=== PATIENT | female | born 1960 | race Caucasian/White ===

== ENCOUNTER → 2019-06-19 | Outpatient (CLI) | payer OTHER | LOC: M.WC 08:00 | DX: L59.8 Other specified disorders of the skin and subcutaneous tissue related to radiation (principal); C44.320 Squamous cell carcinoma of skin of unspecified parts of face; R13.12 Dysphagia, oropharyngeal phase; E03.9 Hypothyroidism, unspecified; I10 Essential (primary) hypertension; J44.9 Chronic obstructive pulmonary disease, unspecified; K11.7 Disturbances of salivary secretion; F41.9 Anxiety disorder, unspecified; F32.9 Major depressive disorder, single episode, unspecified; Z87.891 Personal history of nicotine dependence; Y84.2 Radiological procedure and radiotherapy as the cause of abnormal reaction of the patient, or of later complication, without mention of misadventure at the time of the procedure ==

== ENCOUNTER → 2019-10-30 | Outpatient (CLI) | payer OTHER | LOC: M.WC 01:08 | PROVIDERS: ATTEND Family Medicine | DX: L59.8 Other specified disorders of the skin and subcutaneous tissue related to radiation (principal); C44.320 Squamous cell carcinoma of skin of unspecified parts of face; R13.12 Dysphagia, oropharyngeal phase; K11.7 Disturbances of salivary secretion; E03.9 Hypothyroidism, unspecified; I10 Essential (primary) hypertension; F41.9 Anxiety disorder, unspecified; F32.9 Major depressive disorder, single episode, unspecified; Z87.891 Personal history of nicotine dependence; Y84.2 Radiological procedure and radiotherapy as the cause of abnormal reaction of the patient, or of later complication, without mention of misadventure at the time of the procedure ==

== ENCOUNTER → 2019-11-05 | Outpatient (CLI) | payer OTHER | LOC: M.WC 05:01 | PROVIDERS: ATTEND Family Medicine | DX: L59.8 Other specified disorders of the skin and subcutaneous tissue related to radiation (principal); C44.320 Squamous cell carcinoma of skin of unspecified parts of face; R13.12 Dysphagia, oropharyngeal phase; E03.9 Hypothyroidism, unspecified; I10 Essential (primary) hypertension; J44.9 Chronic obstructive pulmonary disease, unspecified; K11.7 Disturbances of salivary secretion; F41.9 Anxiety disorder, unspecified; F32.9 Major depressive disorder, single episode, unspecified; Z85.810 Personal history of malignant neoplasm of tongue; Y84.2 Radiological procedure and radiotherapy as the cause of abnormal reaction of the patient, or of later complication, without mention of misadventure at the time of the procedure ==

== ENCOUNTER → 2019-11-16 | Outpatient (CLI) | payer OTHER | LOC: M.WC 04:23 | PROVIDERS: ATTEND Surgery | DX: L59.8 Other specified disorders of the skin and subcutaneous tissue related to radiation (principal); C44.320 Squamous cell carcinoma of skin of unspecified parts of face; E03.9 Hypothyroidism, unspecified; I10 Essential (primary) hypertension; R13.12 Dysphagia, oropharyngeal phase; K11.7 Disturbances of salivary secretion; M87.88 Other osteonecrosis, other site; Z87.891 Personal history of nicotine dependence; Z85.810 Personal history of malignant neoplasm of tongue; Y84.2 Radiological procedure and radiotherapy as the cause of abnormal reaction of the patient, or of later complication, without mention of misadventure at the time of the procedure ==

== ENCOUNTER → 2019-11-17 | Outpatient (CLI) | payer OTHER | LOC: M.WC 04:07 | PROVIDERS: ATTEND Emergency Medicine Undersea and Hyperbaric Medicine | DX: L59.8 Other specified disorders of the skin and subcutaneous tissue related to radiation (principal); C44.320 Squamous cell carcinoma of skin of unspecified parts of face; E03.9 Hypothyroidism, unspecified; I10 Essential (primary) hypertension; R13.12 Dysphagia, oropharyngeal phase; K11.7 Disturbances of salivary secretion; M87.88 Other osteonecrosis, other site; Z87.891 Personal history of nicotine dependence; Z85.810 Personal history of malignant neoplasm of tongue; Y84.2 Radiological procedure and radiotherapy as the cause of abnormal reaction of the patient, or of later complication, without mention of misadventure at the time of the procedure ==

== ENCOUNTER → 2019-11-18 | Outpatient (CLI) | payer OTHER | LOC: M.WC 05:54 | PROVIDERS: ATTEND Surgery | DX: L59.8 Other specified disorders of the skin and subcutaneous tissue related to radiation (principal); M87.88 Other osteonecrosis, other site; C44.320 Squamous cell carcinoma of skin of unspecified parts of face; R13.12 Dysphagia, oropharyngeal phase; E03.9 Hypothyroidism, unspecified; I10 Essential (primary) hypertension; K11.7 Disturbances of salivary secretion; Z87.891 Personal history of nicotine dependence; Z85.810 Personal history of malignant neoplasm of tongue; Y84.2 Radiological procedure and radiotherapy as the cause of abnormal reaction of the patient, or of later complication, without mention of misadventure at the time of the procedure ==

== ENCOUNTER → 2019-11-19 | Outpatient (CLI) | payer OTHER | LOC: M.WC 04:23 | PROVIDERS: ATTEND Family Medicine | DX: L59.8 Other specified disorders of the skin and subcutaneous tissue related to radiation (principal); C44.320 Squamous cell carcinoma of skin of unspecified parts of face; E03.9 Hypothyroidism, unspecified; I10 Essential (primary) hypertension; R13.12 Dysphagia, oropharyngeal phase; K11.7 Disturbances of salivary secretion; M87.88 Other osteonecrosis, other site; Z87.891 Personal history of nicotine dependence; Z85.810 Personal history of malignant neoplasm of tongue ==

== ENCOUNTER → 2019-11-20 | Outpatient (CLI) | payer OTHER | LOC: M.WC 05:31 | PROVIDERS: ATTEND Family Medicine | DX: L59.8 Other specified disorders of the skin and subcutaneous tissue related to radiation (principal); M87.88 Other osteonecrosis, other site; C44.320 Squamous cell carcinoma of skin of unspecified parts of face; C02.9 Malignant neoplasm of tongue, unspecified; R13.12 Dysphagia, oropharyngeal phase; K11.7 Disturbances of salivary secretion; E03.9 Hypothyroidism, unspecified; I10 Essential (primary) hypertension; Z87.891 Personal history of nicotine dependence; Y84.2 Radiological procedure and radiotherapy as the cause of abnormal reaction of the patient, or of later complication, without mention of misadventure at the time of the procedure ==

== ENCOUNTER → 2019-11-23 | Outpatient (CLI) | payer OTHER | LOC: M.WC 03:03 | PROVIDERS: ATTEND Surgery | DX: L59.8 Other specified disorders of the skin and subcutaneous tissue related to radiation (principal); C44.320 Squamous cell carcinoma of skin of unspecified parts of face; E03.9 Hypothyroidism, unspecified; I10 Essential (primary) hypertension; R13.12 Dysphagia, oropharyngeal phase; M87.88 Other osteonecrosis, other site; K11.7 Disturbances of salivary secretion; Z87.891 Personal history of nicotine dependence; Z85.810 Personal history of malignant neoplasm of tongue; Y84.2 Radiological procedure and radiotherapy as the cause of abnormal reaction of the patient, or of later complication, without mention of misadventure at the time of the procedure ==

== ENCOUNTER → 2019-11-24 | Outpatient (CLI) | payer OTHER | LOC: M.WC 04:32 | PROVIDERS: ATTEND Emergency Medicine Undersea and Hyperbaric Medicine | DX: L59.8 Other specified disorders of the skin and subcutaneous tissue related to radiation (principal); C44.320 Squamous cell carcinoma of skin of unspecified parts of face; R13.12 Dysphagia, oropharyngeal phase; E03.9 Hypothyroidism, unspecified; I10 Essential (primary) hypertension; M87.88 Other osteonecrosis, other site; K11.7 Disturbances of salivary secretion; Z87.891 Personal history of nicotine dependence; Z85.810 Personal history of malignant neoplasm of tongue ==

== ENCOUNTER → 2019-11-25 | Outpatient (CLI) | payer OTHER | LOC: M.WC 03:50 | PROVIDERS: ATTEND Surgery | DX: L59.8 Other specified disorders of the skin and subcutaneous tissue related to radiation (principal); C44.320 Squamous cell carcinoma of skin of unspecified parts of face; M87.88 Other osteonecrosis, other site; R13.12 Dysphagia, oropharyngeal phase; E03.9 Hypothyroidism, unspecified; I10 Essential (primary) hypertension; K11.7 Disturbances of salivary secretion; Z87.891 Personal history of nicotine dependence; Z85.810 Personal history of malignant neoplasm of tongue; Y84.2 Radiological procedure and radiotherapy as the cause of abnormal reaction of the patient, or of later complication, without mention of misadventure at the time of the procedure ==

== ENCOUNTER → 2019-11-26 | Outpatient (CLI) | payer OTHER | LOC: M.WC 04:08 | PROVIDERS: ATTEND Internal Medicine | DX: L59.8 Other specified disorders of the skin and subcutaneous tissue related to radiation (principal); C44.320 Squamous cell carcinoma of skin of unspecified parts of face; C02.9 Malignant neoplasm of tongue, unspecified; R13.12 Dysphagia, oropharyngeal phase; K11.7 Disturbances of salivary secretion; E03.9 Hypothyroidism, unspecified; I10 Essential (primary) hypertension; M87.88 Other osteonecrosis, other site; Z87.891 Personal history of nicotine dependence; Y84.2 Radiological procedure and radiotherapy as the cause of abnormal reaction of the patient, or of later complication, without mention of misadventure at the time of the procedure ==

== ENCOUNTER → 2019-11-27 | Outpatient (CLI) | payer OTHER | LOC: M.WC 04:18 | PROVIDERS: ATTEND Family Medicine | DX: L59.8 Other specified disorders of the skin and subcutaneous tissue related to radiation (principal); C02.9 Malignant neoplasm of tongue, unspecified; C44.320 Squamous cell carcinoma of skin of unspecified parts of face; K11.7 Disturbances of salivary secretion; E03.9 Hypothyroidism, unspecified; I10 Essential (primary) hypertension; M87.88 Other osteonecrosis, other site; Z87.891 Personal history of nicotine dependence; Y84.2 Radiological procedure and radiotherapy as the cause of abnormal reaction of the patient, or of later complication, without mention of misadventure at the time of the procedure ==

== ENCOUNTER → 2019-11-30 | Outpatient (CLI) | payer OTHER | LOC: M.WC 02:52 | PROVIDERS: ATTEND Surgery | DX: L59.8 Other specified disorders of the skin and subcutaneous tissue related to radiation (principal); M87.88 Other osteonecrosis, other site; C44.320 Squamous cell carcinoma of skin of unspecified parts of face; E03.9 Hypothyroidism, unspecified; R13.12 Dysphagia, oropharyngeal phase; I10 Essential (primary) hypertension; K11.7 Disturbances of salivary secretion; Z87.891 Personal history of nicotine dependence; Z85.810 Personal history of malignant neoplasm of tongue; Y84.2 Radiological procedure and radiotherapy as the cause of abnormal reaction of the patient, or of later complication, without mention of misadventure at the time of the procedure ==

== ENCOUNTER → 2019-12-02 | Outpatient (CLI) | payer OTHER | LOC: M.WC 05:19 | PROVIDERS: ATTEND Surgery | DX: L59.8 Other specified disorders of the skin and subcutaneous tissue related to radiation (principal); C44.320 Squamous cell carcinoma of skin of unspecified parts of face; M87.88 Other osteonecrosis, other site; E03.9 Hypothyroidism, unspecified; R13.12 Dysphagia, oropharyngeal phase; I10 Essential (primary) hypertension; K11.7 Disturbances of salivary secretion; Z87.891 Personal history of nicotine dependence; Z85.810 Personal history of malignant neoplasm of tongue; Y84.2 Radiological procedure and radiotherapy as the cause of abnormal reaction of the patient, or of later complication, without mention of misadventure at the time of the procedure ==

== ENCOUNTER → 2019-12-03 | Outpatient (CLI) | payer OTHER | LOC: M.WC 04:22 | PROVIDERS: ATTEND Family Medicine | DX: L59.8 Other specified disorders of the skin and subcutaneous tissue related to radiation (principal); C44.320 Squamous cell carcinoma of skin of unspecified parts of face; R13.12 Dysphagia, oropharyngeal phase; E03.9 Hypothyroidism, unspecified; I10 Essential (primary) hypertension; K11.7 Disturbances of salivary secretion; M87.88 Other osteonecrosis, other site; Z85.810 Personal history of malignant neoplasm of tongue; Z87.891 Personal history of nicotine dependence; Y84.2 Radiological procedure and radiotherapy as the cause of abnormal reaction of the patient, or of later complication, without mention of misadventure at the time of the procedure ==

== ENCOUNTER → 2019-12-04 | Outpatient (CLI) | payer OTHER | LOC: M.WC 05:23 | PROVIDERS: ATTEND Family Medicine | DX: L59.8 Other specified disorders of the skin and subcutaneous tissue related to radiation (principal); M87.88 Other osteonecrosis, other site; C02.9 Malignant neoplasm of tongue, unspecified; C44.320 Squamous cell carcinoma of skin of unspecified parts of face; R13.12 Dysphagia, oropharyngeal phase; K11.7 Disturbances of salivary secretion; E03.9 Hypothyroidism, unspecified; I10 Essential (primary) hypertension; Z87.891 Personal history of nicotine dependence; Y84.2 Radiological procedure and radiotherapy as the cause of abnormal reaction of the patient, or of later complication, without mention of misadventure at the time of the procedure ==

== ENCOUNTER → 2019-12-07 | Outpatient (CLI) | payer OTHER | LOC: M.WC 05:14 | PROVIDERS: ATTEND Surgery | DX: L59.8 Other specified disorders of the skin and subcutaneous tissue related to radiation (principal); C44.320 Squamous cell carcinoma of skin of unspecified parts of face; R13.12 Dysphagia, oropharyngeal phase; E03.9 Hypothyroidism, unspecified; I10 Essential (primary) hypertension; K11.7 Disturbances of salivary secretion; M87.88 Other osteonecrosis, other site; Z85.810 Personal history of malignant neoplasm of tongue; Z87.891 Personal history of nicotine dependence; Y84.2 Radiological procedure and radiotherapy as the cause of abnormal reaction of the patient, or of later complication, without mention of misadventure at the time of the procedure ==

== ENCOUNTER → 2019-12-08 | Outpatient (CLI) | payer OTHER | LOC: M.WC 04:58 | PROVIDERS: ATTEND Emergency Medicine Undersea and Hyperbaric Medicine | DX: L59.8 Other specified disorders of the skin and subcutaneous tissue related to radiation (principal); C44.320 Squamous cell carcinoma of skin of unspecified parts of face; E03.9 Hypothyroidism, unspecified; R13.12 Dysphagia, oropharyngeal phase; I10 Essential (primary) hypertension; K11.7 Disturbances of salivary secretion; M87.88 Other osteonecrosis, other site; Z87.891 Personal history of nicotine dependence; Z85.810 Personal history of malignant neoplasm of tongue; Y84.2 Radiological procedure and radiotherapy as the cause of abnormal reaction of the patient, or of later complication, without mention of misadventure at the time of the procedure ==

== ENCOUNTER → 2019-12-09 | Outpatient (CLI) | payer OTHER | LOC: M.WC 05:06 | PROVIDERS: ATTEND Surgery | DX: L59.8 Other specified disorders of the skin and subcutaneous tissue related to radiation (principal); C44.320 Squamous cell carcinoma of skin of unspecified parts of face; M87.88 Other osteonecrosis, other site; R13.12 Dysphagia, oropharyngeal phase; E03.9 Hypothyroidism, unspecified; I10 Essential (primary) hypertension; K11.7 Disturbances of salivary secretion; Z87.891 Personal history of nicotine dependence; Z85.810 Personal history of malignant neoplasm of tongue; Y84.2 Radiological procedure and radiotherapy as the cause of abnormal reaction of the patient, or of later complication, without mention of misadventure at the time of the procedure ==

== ENCOUNTER → 2019-12-10 | Outpatient (CLI) | payer OTHER | LOC: M.WC 03:59 | PROVIDERS: ATTEND Family Medicine | DX: L59.8 Other specified disorders of the skin and subcutaneous tissue related to radiation (principal); C44.320 Squamous cell carcinoma of skin of unspecified parts of face; R13.12 Dysphagia, oropharyngeal phase; E03.9 Hypothyroidism, unspecified; I10 Essential (primary) hypertension; K11.7 Disturbances of salivary secretion; M87.88 Other osteonecrosis, other site; Z87.891 Personal history of nicotine dependence; Z85.810 Personal history of malignant neoplasm of tongue; Y84.2 Radiological procedure and radiotherapy as the cause of abnormal reaction of the patient, or of later complication, without mention of misadventure at the time of the procedure ==

== ENCOUNTER → 2019-12-11 | Outpatient (CLI) | payer OTHER | LOC: M.WC 03:51 | PROVIDERS: ATTEND Family Medicine | DX: L59.8 Other specified disorders of the skin and subcutaneous tissue related to radiation (principal); C44.320 Squamous cell carcinoma of skin of unspecified parts of face; R13.12 Dysphagia, oropharyngeal phase; E03.9 Hypothyroidism, unspecified; I10 Essential (primary) hypertension; K11.7 Disturbances of salivary secretion; M87.88 Other osteonecrosis, other site; F41.9 Anxiety disorder, unspecified; F32.9 Major depressive disorder, single episode, unspecified; Z87.891 Personal history of nicotine dependence; Z85.810 Personal history of malignant neoplasm of tongue; Y84.2 Radiological procedure and radiotherapy as the cause of abnormal reaction of the patient, or of later complication, without mention of misadventure at the time of the procedure ==

== ENCOUNTER → 2019-12-14 | Outpatient (CLI) | payer OTHER | LOC: M.WC 01:00 | PROVIDERS: ATTEND Surgery | DX: L59.8 Other specified disorders of the skin and subcutaneous tissue related to radiation (principal); C44.320 Squamous cell carcinoma of skin of unspecified parts of face; E03.9 Hypothyroidism, unspecified; I10 Essential (primary) hypertension; R13.12 Dysphagia, oropharyngeal phase; K11.7 Disturbances of salivary secretion; M87.88 Other osteonecrosis, other site; Z85.810 Personal history of malignant neoplasm of tongue; Z87.891 Personal history of nicotine dependence; Y84.2 Radiological procedure and radiotherapy as the cause of abnormal reaction of the patient, or of later complication, without mention of misadventure at the time of the procedure ==

== ENCOUNTER → 2019-12-15 | Outpatient (CLI) | payer OTHER | LOC: M.WC 06:22 | PROVIDERS: ATTEND Emergency Medicine Undersea and Hyperbaric Medicine | DX: L59.8 Other specified disorders of the skin and subcutaneous tissue related to radiation (principal); C44.320 Squamous cell carcinoma of skin of unspecified parts of face; E03.9 Hypothyroidism, unspecified; R13.12 Dysphagia, oropharyngeal phase; I10 Essential (primary) hypertension; K11.7 Disturbances of salivary secretion; Z87.891 Personal history of nicotine dependence; Z85.810 Personal history of malignant neoplasm of tongue; Y84.2 Radiological procedure and radiotherapy as the cause of abnormal reaction of the patient, or of later complication, without mention of misadventure at the time of the procedure ==

== ENCOUNTER → 2019-12-16 | Outpatient (CLI) | payer OTHER | LOC: M.WC 04:19 | PROVIDERS: ATTEND Surgery | DX: L59.8 Other specified disorders of the skin and subcutaneous tissue related to radiation (principal); C44.320 Squamous cell carcinoma of skin of unspecified parts of face; R13.12 Dysphagia, oropharyngeal phase; E03.9 Hypothyroidism, unspecified; I10 Essential (primary) hypertension; M87.88 Other osteonecrosis, other site; K11.7 Disturbances of salivary secretion; Z87.891 Personal history of nicotine dependence; Z85.810 Personal history of malignant neoplasm of tongue; Y84.2 Radiological procedure and radiotherapy as the cause of abnormal reaction of the patient, or of later complication, without mention of misadventure at the time of the procedure ==

== ENCOUNTER → 2019-12-17 | Outpatient (CLI) | payer OTHER | LOC: M.WC 04:25 | PROVIDERS: ATTEND Family Medicine | DX: L59.8 Other specified disorders of the skin and subcutaneous tissue related to radiation (principal); C44.320 Squamous cell carcinoma of skin of unspecified parts of face; R13.12 Dysphagia, oropharyngeal phase; E03.9 Hypothyroidism, unspecified; I10 Essential (primary) hypertension; M87.88 Other osteonecrosis, other site; K11.7 Disturbances of salivary secretion; Z85.810 Personal history of malignant neoplasm of tongue; Z87.891 Personal history of nicotine dependence; Y84.2 Radiological procedure and radiotherapy as the cause of abnormal reaction of the patient, or of later complication, without mention of misadventure at the time of the procedure ==

== ENCOUNTER → 2019-12-18 | Outpatient (CLI) | payer OTHER | LOC: M.WC 01:21 | PROVIDERS: ATTEND Family Medicine | DX: L59.8 Other specified disorders of the skin and subcutaneous tissue related to radiation (principal); C44.320 Squamous cell carcinoma of skin of unspecified parts of face; C02.9 Malignant neoplasm of tongue, unspecified; R13.12 Dysphagia, oropharyngeal phase; K11.7 Disturbances of salivary secretion; M87.88 Other osteonecrosis, other site; E03.9 Hypothyroidism, unspecified; I10 Essential (primary) hypertension; F99 Mental disorder, not otherwise specified; Z87.891 Personal history of nicotine dependence; Y84.2 Radiological procedure and radiotherapy as the cause of abnormal reaction of the patient, or of later complication, without mention of misadventure at the time of the procedure ==

== ENCOUNTER → 2019-12-21 | Outpatient (CLI) | payer OTHER | LOC: M.WC 02:46 | PROVIDERS: ATTEND Surgery | DX: L59.8 Other specified disorders of the skin and subcutaneous tissue related to radiation (principal); M87.88 Other osteonecrosis, other site; C44.320 Squamous cell carcinoma of skin of unspecified parts of face; C02.9 Malignant neoplasm of tongue, unspecified; R13.12 Dysphagia, oropharyngeal phase; K11.7 Disturbances of salivary secretion; E03.9 Hypothyroidism, unspecified; I10 Essential (primary) hypertension; Z87.891 Personal history of nicotine dependence; Y84.2 Radiological procedure and radiotherapy as the cause of abnormal reaction of the patient, or of later complication, without mention of misadventure at the time of the procedure ==

== ENCOUNTER → 2019-12-22 | Outpatient (CLI) | payer OTHER | LOC: M.WC 05:26 | PROVIDERS: ATTEND Emergency Medicine Undersea and Hyperbaric Medicine | DX: L59.8 Other specified disorders of the skin and subcutaneous tissue related to radiation (principal); M87.88 Other osteonecrosis, other site; C44.320 Squamous cell carcinoma of skin of unspecified parts of face; R13.12 Dysphagia, oropharyngeal phase; K11.7 Disturbances of salivary secretion; E03.9 Hypothyroidism, unspecified; I10 Essential (primary) hypertension; Z87.891 Personal history of nicotine dependence; Y84.2 Radiological procedure and radiotherapy as the cause of abnormal reaction of the patient, or of later complication, without mention of misadventure at the time of the procedure ==

== ENCOUNTER → 2019-12-23 | Outpatient (CLI) | payer OTHER | LOC: M.WC 04:33 | PROVIDERS: ATTEND Surgery | DX: L59.8 Other specified disorders of the skin and subcutaneous tissue related to radiation (principal); M87.88 Other osteonecrosis, other site; C44.320 Squamous cell carcinoma of skin of unspecified parts of face; R13.12 Dysphagia, oropharyngeal phase; K11.7 Disturbances of salivary secretion; E03.9 Hypothyroidism, unspecified; I10 Essential (primary) hypertension; Z87.891 Personal history of nicotine dependence; Y84.2 Radiological procedure and radiotherapy as the cause of abnormal reaction of the patient, or of later complication, without mention of misadventure at the time of the procedure ==

== ENCOUNTER → 2019-12-24 | Outpatient (CLI) | payer OTHER | LOC: M.WC 01:29 | PROVIDERS: ATTEND Family Medicine | DX: L59.8 Other specified disorders of the skin and subcutaneous tissue related to radiation (principal); C44.320 Squamous cell carcinoma of skin of unspecified parts of face; E03.9 Hypothyroidism, unspecified; R13.12 Dysphagia, oropharyngeal phase; I10 Essential (primary) hypertension; K11.7 Disturbances of salivary secretion; M87.88 Other osteonecrosis, other site; Z87.891 Personal history of nicotine dependence; Z85.810 Personal history of malignant neoplasm of tongue; Y84.2 Radiological procedure and radiotherapy as the cause of abnormal reaction of the patient, or of later complication, without mention of misadventure at the time of the procedure ==

== ENCOUNTER → 2019-12-25 | Outpatient (CLI) | payer OTHER | LOC: M.WC 01:16 | PROVIDERS: ATTEND Family Medicine | DX: L59.8 Other specified disorders of the skin and subcutaneous tissue related to radiation (principal); C44.320 Squamous cell carcinoma of skin of unspecified parts of face; R13.12 Dysphagia, oropharyngeal phase; K11.7 Disturbances of salivary secretion; M87.88 Other osteonecrosis, other site; C02.9 Malignant neoplasm of tongue, unspecified; E03.9 Hypothyroidism, unspecified; I10 Essential (primary) hypertension; F41.9 Anxiety disorder, unspecified; F32.9 Major depressive disorder, single episode, unspecified; Z87.891 Personal history of nicotine dependence; Y84.2 Radiological procedure and radiotherapy as the cause of abnormal reaction of the patient, or of later complication, without mention of misadventure at the time of the procedure ==

== ENCOUNTER → 2019-12-28 | Outpatient (CLI) | payer OTHER | LOC: M.WC 04:10 | PROVIDERS: ATTEND Surgery | DX: L59.8 Other specified disorders of the skin and subcutaneous tissue related to radiation (principal); C44.320 Squamous cell carcinoma of skin of unspecified parts of face; R13.12 Dysphagia, oropharyngeal phase; E03.9 Hypothyroidism, unspecified; I10 Essential (primary) hypertension; K11.7 Disturbances of salivary secretion; M87.88 Other osteonecrosis, other site; Z87.891 Personal history of nicotine dependence; Z85.810 Personal history of malignant neoplasm of tongue; Y84.2 Radiological procedure and radiotherapy as the cause of abnormal reaction of the patient, or of later complication, without mention of misadventure at the time of the procedure ==

== ENCOUNTER → 2019-12-29 | Outpatient (CLI) | payer OTHER | LOC: M.WC 03:51 | PROVIDERS: ATTEND Emergency Medicine Undersea and Hyperbaric Medicine | DX: L59.8 Other specified disorders of the skin and subcutaneous tissue related to radiation (principal); C44.320 Squamous cell carcinoma of skin of unspecified parts of face; E03.9 Hypothyroidism, unspecified; R13.12 Dysphagia, oropharyngeal phase; I10 Essential (primary) hypertension; K11.7 Disturbances of salivary secretion; M87.88 Other osteonecrosis, other site; Z87.891 Personal history of nicotine dependence; Z85.810 Personal history of malignant neoplasm of tongue; Y84.2 Radiological procedure and radiotherapy as the cause of abnormal reaction of the patient, or of later complication, without mention of misadventure at the time of the procedure ==

== ENCOUNTER → 2019-12-30 | Outpatient (CLI) | payer OTHER | LOC: M.WC 03:43 | PROVIDERS: ATTEND Surgery | DX: L59.8 Other specified disorders of the skin and subcutaneous tissue related to radiation (principal); C44.320 Squamous cell carcinoma of skin of unspecified parts of face; E03.9 Hypothyroidism, unspecified; R13.12 Dysphagia, oropharyngeal phase; I10 Essential (primary) hypertension; K11.7 Disturbances of salivary secretion; M87.88 Other osteonecrosis, other site; Z87.891 Personal history of nicotine dependence; Z85.810 Personal history of malignant neoplasm of tongue; Y84.2 Radiological procedure and radiotherapy as the cause of abnormal reaction of the patient, or of later complication, without mention of misadventure at the time of the procedure ==

== ENCOUNTER → 2019-12-31 | Outpatient (CLI) | payer OTHER | LOC: M.WC 04:10 | PROVIDERS: ATTEND Family Medicine | DX: L59.8 Other specified disorders of the skin and subcutaneous tissue related to radiation (principal); C44.320 Squamous cell carcinoma of skin of unspecified parts of face; E03.9 Hypothyroidism, unspecified; I10 Essential (primary) hypertension; R13.12 Dysphagia, oropharyngeal phase; K11.7 Disturbances of salivary secretion; M87.88 Other osteonecrosis, other site; Z87.891 Personal history of nicotine dependence; Z85.810 Personal history of malignant neoplasm of tongue; Y84.2 Radiological procedure and radiotherapy as the cause of abnormal reaction of the patient, or of later complication, without mention of misadventure at the time of the procedure ==

== ENCOUNTER → 2020-01-01 | Outpatient (CLI) | payer OTHER | LOC: M.WC 04:19 | PROVIDERS: ATTEND Family Medicine | DX: L59.8 Other specified disorders of the skin and subcutaneous tissue related to radiation (principal); M87.88 Other osteonecrosis, other site; C44.320 Squamous cell carcinoma of skin of unspecified parts of face; R13.12 Dysphagia, oropharyngeal phase; K11.7 Disturbances of salivary secretion; E03.9 Hypothyroidism, unspecified; I10 Essential (primary) hypertension; Z87.891 Personal history of nicotine dependence; Z85.810 Personal history of malignant neoplasm of tongue; Y84.2 Radiological procedure and radiotherapy as the cause of abnormal reaction of the patient, or of later complication, without mention of misadventure at the time of the procedure ==

== ENCOUNTER → 2020-01-04 | Outpatient (CLI) | payer OTHER | LOC: M.WC 06:50 | PROVIDERS: ATTEND Surgery | DX: L59.8 Other specified disorders of the skin and subcutaneous tissue related to radiation (principal); C44.320 Squamous cell carcinoma of skin of unspecified parts of face; E03.9 Hypothyroidism, unspecified; I10 Essential (primary) hypertension; R13.12 Dysphagia, oropharyngeal phase; K11.7 Disturbances of salivary secretion; M87.88 Other osteonecrosis, other site; Z87.891 Personal history of nicotine dependence; Z85.810 Personal history of malignant neoplasm of tongue; Y84.2 Radiological procedure and radiotherapy as the cause of abnormal reaction of the patient, or of later complication, without mention of misadventure at the time of the procedure ==

== ENCOUNTER → 2020-01-05 | Outpatient (CLI) | payer OTHER | LOC: M.WC 04:56 | PROVIDERS: ATTEND Emergency Medicine Undersea and Hyperbaric Medicine | DX: L59.8 Other specified disorders of the skin and subcutaneous tissue related to radiation (principal); M87.88 Other osteonecrosis, other site; C44.320 Squamous cell carcinoma of skin of unspecified parts of face; R13.12 Dysphagia, oropharyngeal phase; E03.9 Hypothyroidism, unspecified; I10 Essential (primary) hypertension; K11.7 Disturbances of salivary secretion; Z87.891 Personal history of nicotine dependence; Z85.810 Personal history of malignant neoplasm of tongue; Y84.2 Radiological procedure and radiotherapy as the cause of abnormal reaction of the patient, or of later complication, without mention of misadventure at the time of the procedure ==

== ENCOUNTER → 2020-01-06 | Outpatient (CLI) | payer OTHER | LOC: M.WC 02:15 | PROVIDERS: ATTEND Surgery | DX: L59.8 Other specified disorders of the skin and subcutaneous tissue related to radiation (principal); M87.88 Other osteonecrosis, other site; C44.320 Squamous cell carcinoma of skin of unspecified parts of face; E03.9 Hypothyroidism, unspecified; R13.12 Dysphagia, oropharyngeal phase; I10 Essential (primary) hypertension; K11.7 Disturbances of salivary secretion; Z87.891 Personal history of nicotine dependence; Z85.810 Personal history of malignant neoplasm of tongue; Y84.2 Radiological procedure and radiotherapy as the cause of abnormal reaction of the patient, or of later complication, without mention of misadventure at the time of the procedure ==

== ENCOUNTER → 2020-01-07 | Outpatient (CLI) | payer OTHER | LOC: M.WC 05:03 | PROVIDERS: ATTEND Family Medicine | DX: L59.8 Other specified disorders of the skin and subcutaneous tissue related to radiation (principal); M87.88 Other osteonecrosis, other site; C44.320 Squamous cell carcinoma of skin of unspecified parts of face; R13.12 Dysphagia, oropharyngeal phase; E03.9 Hypothyroidism, unspecified; I10 Essential (primary) hypertension; K11.7 Disturbances of salivary secretion; Z87.891 Personal history of nicotine dependence; Z85.810 Personal history of malignant neoplasm of tongue; Y84.2 Radiological procedure and radiotherapy as the cause of abnormal reaction of the patient, or of later complication, without mention of misadventure at the time of the procedure ==

== ENCOUNTER → 2020-01-08 | Outpatient (CLI) | payer OTHER | LOC: M.WC 03:44 | PROVIDERS: ATTEND Family Medicine | DX: L59.8 Other specified disorders of the skin and subcutaneous tissue related to radiation (principal); M87.88 Other osteonecrosis, other site; C44.320 Squamous cell carcinoma of skin of unspecified parts of face; C02.9 Malignant neoplasm of tongue, unspecified; R13.12 Dysphagia, oropharyngeal phase; K11.7 Disturbances of salivary secretion; E03.9 Hypothyroidism, unspecified; I10 Essential (primary) hypertension; F32.9 Major depressive disorder, single episode, unspecified; F41.9 Anxiety disorder, unspecified; Z87.891 Personal history of nicotine dependence; Y84.2 Radiological procedure and radiotherapy as the cause of abnormal reaction of the patient, or of later complication, without mention of misadventure at the time of the procedure ==

== ENCOUNTER → 2020-01-11 | Outpatient (CLI) | payer OTHER | LOC: M.WC 03:22 | PROVIDERS: ATTEND Surgery | DX: L59.8 Other specified disorders of the skin and subcutaneous tissue related to radiation (principal); M87.88 Other osteonecrosis, other site; C44.320 Squamous cell carcinoma of skin of unspecified parts of face; R13.12 Dysphagia, oropharyngeal phase; E03.9 Hypothyroidism, unspecified; I10 Essential (primary) hypertension; K11.7 Disturbances of salivary secretion; Z87.891 Personal history of nicotine dependence; Z85.810 Personal history of malignant neoplasm of tongue; Y84.2 Radiological procedure and radiotherapy as the cause of abnormal reaction of the patient, or of later complication, without mention of misadventure at the time of the procedure ==

== ENCOUNTER → 2020-01-12 | Outpatient (CLI) | payer OTHER | LOC: M.WC 03:57 | PROVIDERS: ATTEND Emergency Medicine Undersea and Hyperbaric Medicine | DX: L59.8 Other specified disorders of the skin and subcutaneous tissue related to radiation (principal); M87.88 Other osteonecrosis, other site; C44.320 Squamous cell carcinoma of skin of unspecified parts of face; E03.9 Hypothyroidism, unspecified; R13.12 Dysphagia, oropharyngeal phase; I10 Essential (primary) hypertension; K11.7 Disturbances of salivary secretion; Z87.891 Personal history of nicotine dependence; Z85.810 Personal history of malignant neoplasm of tongue; Y84.2 Radiological procedure and radiotherapy as the cause of abnormal reaction of the patient, or of later complication, without mention of misadventure at the time of the procedure ==

== ENCOUNTER → 2020-01-13 | Outpatient (CLI) | payer OTHER | LOC: M.WC 04:41 | PROVIDERS: ATTEND Surgery | DX: L59.8 Other specified disorders of the skin and subcutaneous tissue related to radiation (principal); M87.88 Other osteonecrosis, other site; C44.320 Squamous cell carcinoma of skin of unspecified parts of face; R13.12 Dysphagia, oropharyngeal phase; E03.9 Hypothyroidism, unspecified; I10 Essential (primary) hypertension; K11.7 Disturbances of salivary secretion; Z87.891 Personal history of nicotine dependence; Z85.810 Personal history of malignant neoplasm of tongue; Y84.2 Radiological procedure and radiotherapy as the cause of abnormal reaction of the patient, or of later complication, without mention of misadventure at the time of the procedure ==

== ENCOUNTER → 2020-01-14 | Outpatient (CLI) | payer OTHER | LOC: M.WC 04:40 | PROVIDERS: ATTEND Family Medicine | DX: L59.8 Other specified disorders of the skin and subcutaneous tissue related to radiation (principal); M87.88 Other osteonecrosis, other site; C44.320 Squamous cell carcinoma of skin of unspecified parts of face; R13.12 Dysphagia, oropharyngeal phase; E03.9 Hypothyroidism, unspecified; I10 Essential (primary) hypertension; K11.7 Disturbances of salivary secretion; Z87.891 Personal history of nicotine dependence; Z85.810 Personal history of malignant neoplasm of tongue; Y84.2 Radiological procedure and radiotherapy as the cause of abnormal reaction of the patient, or of later complication, without mention of misadventure at the time of the procedure ==

== ENCOUNTER → 2020-01-15 | Outpatient (CLI) | payer OTHER | LOC: M.WC 07:30 | PROVIDERS: ATTEND Family Medicine | DX: L59.8 Other specified disorders of the skin and subcutaneous tissue related to radiation (principal); M87.88 Other osteonecrosis, other site; C44.320 Squamous cell carcinoma of skin of unspecified parts of face; R13.12 Dysphagia, oropharyngeal phase; K11.7 Disturbances of salivary secretion; C02.9 Malignant neoplasm of tongue, unspecified; E03.9 Hypothyroidism, unspecified; I10 Essential (primary) hypertension; Z87.891 Personal history of nicotine dependence; Y84.2 Radiological procedure and radiotherapy as the cause of abnormal reaction of the patient, or of later complication, without mention of misadventure at the time of the procedure ==

== ENCOUNTER → 2020-01-19 | Outpatient (CLI) | payer OTHER | LOC: M.WC 01-18 08:00 | PROVIDERS: ATTEND Emergency Medicine Undersea and Hyperbaric Medicine | DX: L59.8 Other specified disorders of the skin and subcutaneous tissue related to radiation (principal); M87.88 Other osteonecrosis, other site; C44.320 Squamous cell carcinoma of skin of unspecified parts of face; R13.12 Dysphagia, oropharyngeal phase; E03.9 Hypothyroidism, unspecified; I10 Essential (primary) hypertension; K11.7 Disturbances of salivary secretion; Z87.891 Personal history of nicotine dependence; Z85.810 Personal history of malignant neoplasm of tongue; Y84.2 Radiological procedure and radiotherapy as the cause of abnormal reaction of the patient, or of later complication, without mention of misadventure at the time of the procedure ==

== ENCOUNTER → 2020-01-20 | Outpatient (CLI) | payer OTHER | LOC: M.WC 03:50 | PROVIDERS: ATTEND Surgery | DX: L59.8 Other specified disorders of the skin and subcutaneous tissue related to radiation (principal); M87.88 Other osteonecrosis, other site; C44.320 Squamous cell carcinoma of skin of unspecified parts of face; R13.12 Dysphagia, oropharyngeal phase; E03.9 Hypothyroidism, unspecified; I10 Essential (primary) hypertension; K11.7 Disturbances of salivary secretion; Z87.891 Personal history of nicotine dependence; Z85.810 Personal history of malignant neoplasm of tongue; Y84.2 Radiological procedure and radiotherapy as the cause of abnormal reaction of the patient, or of later complication, without mention of misadventure at the time of the procedure ==

== ENCOUNTER → 2020-01-21 | Outpatient (CLI) | payer OTHER | LOC: M.WC 00:32 | PROVIDERS: ATTEND Family Medicine | DX: L59.8 Other specified disorders of the skin and subcutaneous tissue related to radiation (principal); M87.88 Other osteonecrosis, other site; C44.320 Squamous cell carcinoma of skin of unspecified parts of face; R13.12 Dysphagia, oropharyngeal phase; E03.9 Hypothyroidism, unspecified; I10 Essential (primary) hypertension; K11.7 Disturbances of salivary secretion; Z87.891 Personal history of nicotine dependence; Z85.810 Personal history of malignant neoplasm of tongue; Y84.2 Radiological procedure and radiotherapy as the cause of abnormal reaction of the patient, or of later complication, without mention of misadventure at the time of the procedure ==

== ENCOUNTER → 2020-01-22 | Outpatient (CLI) | payer OTHER | LOC: M.WC 04:16 | PROVIDERS: ATTEND Family Medicine | DX: L59.8 Other specified disorders of the skin and subcutaneous tissue related to radiation (principal); M87.88 Other osteonecrosis, other site; C44.320 Squamous cell carcinoma of skin of unspecified parts of face; R13.12 Dysphagia, oropharyngeal phase; E03.9 Hypothyroidism, unspecified; I10 Essential (primary) hypertension; K11.7 Disturbances of salivary secretion; F41.9 Anxiety disorder, unspecified; F32.9 Major depressive disorder, single episode, unspecified; Z87.891 Personal history of nicotine dependence; Z85.810 Personal history of malignant neoplasm of tongue; Y84.2 Radiological procedure and radiotherapy as the cause of abnormal reaction of the patient, or of later complication, without mention of misadventure at the time of the procedure ==

== ENCOUNTER → 2020-01-25 | Outpatient (CLI) | payer OTHER | LOC: M.WC 04:07 | PROVIDERS: ATTEND Surgery | DX: L59.8 Other specified disorders of the skin and subcutaneous tissue related to radiation (principal); M87.88 Other osteonecrosis, other site; C44.320 Squamous cell carcinoma of skin of unspecified parts of face; R13.12 Dysphagia, oropharyngeal phase; E03.9 Hypothyroidism, unspecified; I10 Essential (primary) hypertension; K11.7 Disturbances of salivary secretion; Z87.891 Personal history of nicotine dependence; Z85.810 Personal history of malignant neoplasm of tongue; Y84.2 Radiological procedure and radiotherapy as the cause of abnormal reaction of the patient, or of later complication, without mention of misadventure at the time of the procedure ==

== ENCOUNTER → 2020-01-26 | Outpatient (CLI) | payer OTHER | LOC: M.WC 04:13 | PROVIDERS: ATTEND Emergency Medicine Undersea and Hyperbaric Medicine | DX: L59.8 Other specified disorders of the skin and subcutaneous tissue related to radiation (principal); M87.88 Other osteonecrosis, other site; C44.320 Squamous cell carcinoma of skin of unspecified parts of face; R13.12 Dysphagia, oropharyngeal phase; E03.9 Hypothyroidism, unspecified; I10 Essential (primary) hypertension; K11.7 Disturbances of salivary secretion; Z87.891 Personal history of nicotine dependence; Z85.810 Personal history of malignant neoplasm of tongue; Y84.2 Radiological procedure and radiotherapy as the cause of abnormal reaction of the patient, or of later complication, without mention of misadventure at the time of the procedure ==

== ENCOUNTER → 2020-01-27 | Outpatient (CLI) | payer OTHER | LOC: M.WC 04:28 | PROVIDERS: ATTEND Surgery | DX: L59.8 Other specified disorders of the skin and subcutaneous tissue related to radiation (principal); M87.88 Other osteonecrosis, other site; C44.320 Squamous cell carcinoma of skin of unspecified parts of face; R13.12 Dysphagia, oropharyngeal phase; E03.9 Hypothyroidism, unspecified; I10 Essential (primary) hypertension; K11.7 Disturbances of salivary secretion; Z87.891 Personal history of nicotine dependence; Z85.810 Personal history of malignant neoplasm of tongue; Y84.2 Radiological procedure and radiotherapy as the cause of abnormal reaction of the patient, or of later complication, without mention of misadventure at the time of the procedure ==

== ENCOUNTER → 2020-01-28 | Outpatient (CLI) | payer OTHER | LOC: M.WC 05:07 | PROVIDERS: ATTEND Family Medicine | DX: L59.8 Other specified disorders of the skin and subcutaneous tissue related to radiation (principal); M87.88 Other osteonecrosis, other site; C44.320 Squamous cell carcinoma of skin of unspecified parts of face; R13.12 Dysphagia, oropharyngeal phase; E03.9 Hypothyroidism, unspecified; I10 Essential (primary) hypertension; K11.7 Disturbances of salivary secretion; Z87.891 Personal history of nicotine dependence; Z85.810 Personal history of malignant neoplasm of tongue; Y84.2 Radiological procedure and radiotherapy as the cause of abnormal reaction of the patient, or of later complication, without mention of misadventure at the time of the procedure ==

== ENCOUNTER → 2020-01-29 | Outpatient (CLI) | payer OTHER | LOC: M.WC 04:53 | PROVIDERS: ATTEND Family Medicine | DX: L59.8 Other specified disorders of the skin and subcutaneous tissue related to radiation (principal); M87.88 Other osteonecrosis, other site; C44.320 Squamous cell carcinoma of skin of unspecified parts of face; R13.12 Dysphagia, oropharyngeal phase; K11.7 Disturbances of salivary secretion; C02.9 Malignant neoplasm of tongue, unspecified; E03.9 Hypothyroidism, unspecified; I10 Essential (primary) hypertension; Z87.891 Personal history of nicotine dependence; Y84.2 Radiological procedure and radiotherapy as the cause of abnormal reaction of the patient, or of later complication, without mention of misadventure at the time of the procedure ==

== ENCOUNTER → 2020-02-01 | Outpatient (CLI) | payer OTHER | LOC: M.WC 03:35 | PROVIDERS: ATTEND Surgery | DX: L59.8 Other specified disorders of the skin and subcutaneous tissue related to radiation (principal); M87.88 Other osteonecrosis, other site; C44.320 Squamous cell carcinoma of skin of unspecified parts of face; R13.12 Dysphagia, oropharyngeal phase; K11.7 Disturbances of salivary secretion; C02.9 Malignant neoplasm of tongue, unspecified; E03.9 Hypothyroidism, unspecified; I10 Essential (primary) hypertension; Z87.891 Personal history of nicotine dependence; Y84.2 Radiological procedure and radiotherapy as the cause of abnormal reaction of the patient, or of later complication, without mention of misadventure at the time of the procedure ==

== ENCOUNTER → 2020-02-02 | Outpatient (CLI) | payer OTHER | LOC: M.WC 03:32 | PROVIDERS: ATTEND Emergency Medicine Undersea and Hyperbaric Medicine | DX: L59.8 Other specified disorders of the skin and subcutaneous tissue related to radiation (principal); M87.88 Other osteonecrosis, other site; C44.320 Squamous cell carcinoma of skin of unspecified parts of face; E03.9 Hypothyroidism, unspecified; R13.12 Dysphagia, oropharyngeal phase; I10 Essential (primary) hypertension; K11.7 Disturbances of salivary secretion; Z87.891 Personal history of nicotine dependence; Z85.810 Personal history of malignant neoplasm of tongue; Y84.2 Radiological procedure and radiotherapy as the cause of abnormal reaction of the patient, or of later complication, without mention of misadventure at the time of the procedure ==

== ENCOUNTER → 2020-02-03 | Outpatient (CLI) | payer OTHER | LOC: M.WC 05:16 | PROVIDERS: ATTEND Surgery | DX: L59.8 Other specified disorders of the skin and subcutaneous tissue related to radiation (principal); M87.88 Other osteonecrosis, other site; C44.320 Squamous cell carcinoma of skin of unspecified parts of face; E03.9 Hypothyroidism, unspecified; R13.12 Dysphagia, oropharyngeal phase; I10 Essential (primary) hypertension; K11.7 Disturbances of salivary secretion; Z87.891 Personal history of nicotine dependence; Z85.810 Personal history of malignant neoplasm of tongue; Y84.2 Radiological procedure and radiotherapy as the cause of abnormal reaction of the patient, or of later complication, without mention of misadventure at the time of the procedure ==

== ENCOUNTER → 2020-02-04 | Outpatient (CLI) | payer OTHER | LOC: M.WC 05:08 | PROVIDERS: ATTEND Family Medicine | DX: L59.8 Other specified disorders of the skin and subcutaneous tissue related to radiation (principal); C44.320 Squamous cell carcinoma of skin of unspecified parts of face; M87.88 Other osteonecrosis, other site; R13.12 Dysphagia, oropharyngeal phase; E03.9 Hypothyroidism, unspecified; I10 Essential (primary) hypertension; K11.7 Disturbances of salivary secretion; F41.9 Anxiety disorder, unspecified; F32.9 Major depressive disorder, single episode, unspecified; Z87.891 Personal history of nicotine dependence; Z85.810 Personal history of malignant neoplasm of tongue; Y84.2 Radiological procedure and radiotherapy as the cause of abnormal reaction of the patient, or of later complication, without mention of misadventure at the time of the procedure ==

== ENCOUNTER → 2020-02-08 | Outpatient (CLI) | payer OTHER | LOC: M.WC 02:19 | PROVIDERS: ATTEND Surgery | DX: L59.8 Other specified disorders of the skin and subcutaneous tissue related to radiation (principal); C44.320 Squamous cell carcinoma of skin of unspecified parts of face; M87.88 Other osteonecrosis, other site; R13.12 Dysphagia, oropharyngeal phase; E03.9 Hypothyroidism, unspecified; I10 Essential (primary) hypertension; K11.7 Disturbances of salivary secretion; F41.9 Anxiety disorder, unspecified; F32.9 Major depressive disorder, single episode, unspecified; Z87.891 Personal history of nicotine dependence; Z85.810 Personal history of malignant neoplasm of tongue; Y84.2 Radiological procedure and radiotherapy as the cause of abnormal reaction of the patient, or of later complication, without mention of misadventure at the time of the procedure ==

== ENCOUNTER → 2020-02-09 | Outpatient (CLI) | payer OTHER | LOC: M.WC 05:20 | PROVIDERS: ATTEND Emergency Medicine Undersea and Hyperbaric Medicine | DX: L59.8 Other specified disorders of the skin and subcutaneous tissue related to radiation (principal); C44.320 Squamous cell carcinoma of skin of unspecified parts of face; M87.88 Other osteonecrosis, other site; R13.12 Dysphagia, oropharyngeal phase; E03.9 Hypothyroidism, unspecified; I10 Essential (primary) hypertension; K11.7 Disturbances of salivary secretion; F41.9 Anxiety disorder, unspecified; F32.9 Major depressive disorder, single episode, unspecified; Z87.891 Personal history of nicotine dependence; Z85.810 Personal history of malignant neoplasm of tongue; Y84.2 Radiological procedure and radiotherapy as the cause of abnormal reaction of the patient, or of later complication, without mention of misadventure at the time of the procedure ==